=== PATIENT | female | born 1965 | race African-American/Black ===

== ENCOUNTER 2016-11-14 11:06 | Emergency (ER) | payer SELFPAY ==
[~2016-11-14] VITALS: Ht 162.6 cm; Wt 100.0 kg
[2016-11-14 11:55] VITALS: BP 186/114
== END 2016-11-14 14:25 | disposition home or self-care (01) ==
LOC: ER 14:23
DX: S93.401A Sprain of unspecified ligament of right ankle, initial encounter (principal); I10 Essential (primary) hypertension; F17.200 Nicotine dependence, unspecified, uncomplicated; X58.XXXA Exposure to other specified factors, initial encounter; Y93.89 Activity, other specified; Y92.89 Other specified places as the place of occurrence of the external cause; Y99.8 Other external cause status
CPT/HCPCS: 99282